=== PATIENT | male | born 1965 | race Caucasian/White ===

== ENCOUNTER 2022-01-28 01:37 | Outpatient (CLI) | payer BC, SELFPAY ==
[2022-01-28 12:17] LABS: Abs Immature Grans 0.05 10^3/uL (0.0-0.06); Absolute Basophil Count 0.06 10^3/uL (0.0-0.2); Absolute Eosinophil Count 0.09 10^3/uL (0.0-0.7); Absolute Lymphocyte Count 2.61 10^3/uL (1.2-3.4); Absolute Monocyte Count 0.96 10^3/uL (0.1-0.8); Absolute Neutrophil Count 6.14 10^3/uL (1.2-6.7); Basophils % 0.6; Eosinophils % 0.9; HCT 44.3 % (40.0-50.0); HGB 14.9 g/dL (13.5-17.5); Immature Grans % 0.5; Lymphocytes % 26.3; MCH 27.9 pg (27.0-33.0); MCHC 33.6 % (32.0-36.0); MCV 83 fL (80-95); MPV 10.7 fL (8.0-11.0); Monocytes % 9.7; Platelet Count 233 10^3/uL (130-400); RBC 5.34 10^6/uL (4.36-5.78); RDW 12.2 % (11.8-14.1); RDW-SD 36.9 fL; WBC 9.91 10^3/uL (4.4-10.8)
[2022-01-28 12:44] LABS: Hemoglobin A1C 12.4 % (<5.7)
[2022-01-28 13:00] LABS: ALT 32 U/L (16-63); AST 10 U/L (15-37); Albumin 3.6 g/dL (3.4-5.0); Alkaline Phosphatase 94 U/L (46-116); Anion Gap 6.9 mmol/L (3-11); BUN 20 mg/dL (7-18); Bilirubin, Total 0.4 mg/dL (0.2-1.0); CO2 30.1 mmol/L (21.0-32.0); CREATININE 1.1 mg/dL (0.70-1.30); Calcium 8.7 mg/dL (8.5-10.1); Calculated LDL 91 mg/dL (<100); Chloride 100 mmol/L (98-107); Cholesterol 169 mg/dL (<200); Estimated GFR 77.81 (mL/min/1.73m2); Glucose 319 mg/dL (74-106); HDL Cholesterol 40 mg/dL (40-60); Potassium 4.1 mmol/L (3.5-5.1); Sodium 137 mmol/L (136-145); TSH (W/Ref FT4) 1.74 uIU/mL (0.36-3.74); Total Protein 7.3 g/dL (6.4-8.2); Triglyceride 194 mg/dL (<150); Vitamin B12 307 pg/mL (193-986)
[2022-01-28 20:42] LABS: PSA, Screening 0.4 ng/mL (<=3.5)
== END 2022-01-28 01:38 | disposition home or self-care (01) ==
LOC: LOS 01:37
PROVIDERS: PCP Nurse Practitioner Family; Visit Provider Nurse Practitioner Family
DX: Z00.00 Encounter for general adult medical examination without abnormal findings (principal); R35.1 Nocturia; Z12.5 Encounter for screening for malignant neoplasm of prostate
CPT/HCPCS: 36415; 80053; 80061; 84153; 82607; 83036; 84443; 85025

== ENCOUNTER 2022-06-21 03:27 | Outpatient (CLI) | payer BC, SELFPAY ==
[2022-06-21 12:38] LABS: Hemoglobin A1C 7.2 % (<5.7)
[2022-06-21 12:44] LABS: Anion Gap 9.3 mmol/L (3-11); BUN 18 mg/dL (7-18); CO2 29.7 mmol/L (21.0-32.0); Calculated LDL 44 mg/dL (<100); Chloride 102 mmol/L (98-107); Cholesterol 103 mg/dL (<200); Glucose 128 mg/dL (74-106); HDL Cholesterol 43 mg/dL (40-60); Potassium 4.2 mmol/L (3.5-5.1); Sodium 141 mmol/L (136-145); Triglyceride 82 mg/dL (<150)
== END 2022-06-21 03:28 | disposition home or self-care (01) ==
LOC: LOS 03:27
PROVIDERS: PCP Nurse Practitioner Family; Visit Provider Nurse Practitioner Family
DX: E11.40 Type 2 diabetes mellitus with diabetic neuropathy, unspecified (principal); Z79.4 Long term (current) use of insulin
CPT/HCPCS: 36415; 80048; 80061; 83036

== ENCOUNTER 2024-03-08 10:38 | Outpatient (CLI) | payer BC, SELFPAY ==
[2024-03-08 12:32] LABS: Abs Immature Grans 0.06 10^3/uL (0.0-0.06); Absolute Eosinophil Count 0.05 10^3/uL (0.0-0.7); Absolute Lymphocyte Count 2.07 10^3/uL (1.2-3.4); Absolute Monocyte Count 1.18 10^3/uL (0.1-0.8); Basophils % 0.3 %; Eosinophils % 0.4 %; HCT 45.7 % (40.0-50.0); HGB 14.8 g/dL (13.5-17.5); Immature Grans % 0.5 %; Lymphocytes % 17.8 %; MCH 27.5 pg (27.0-33.0); MCHC 32.4 % (32.0-36.0); MCV 85 fL (80-95); MPV 10.8 fL (8.0-11.0); Monocytes % 10.1 %; Neutrophils % 70.9 %; Platelet Count 217 10^3/uL (130-400); RBC 5.39 10^6/uL (4.36-5.78); RDW 12.4 % (11.8-14.1); WBC 11.64 10^3/uL (4.4-10.8)
[2024-03-08 12:33] LABS: Absolute Basophil Count 0.03 10^3/uL (0.0-0.2); Absolute Neutrophil Count 8.25 10^3/uL (1.2-6.7); Anion Gap 9.1 mmol/L (3-11); BUN 15 mg/dL (7-18); CO2 28.9 mmol/L (21.0-32.0); CREATININE 1.2 mg/dL (0.70-1.30); Chloride 101 mmol/L (98-107); Estimated GFR 69.23 (mL/min/1.73m2); Glucose 244 mg/dL (74-106); Potassium 4.2 mmol/L (3.5-5.1); Sodium 139 mmol/L (136-145); Uric Acid 3.4 mg/dL (3.5-7.2)
== END 2024-03-08 10:39 | disposition home or self-care (01) ==
LOC: LOS 10:39
PROVIDERS: PCP Nurse Practitioner Family; Referring Provider Nurse Practitioner Family; Visit Provider Nurse Practitioner Family
DX: M79.671 Pain in right foot (principal); S99.921A Unspecified injury of right foot, initial encounter; M25.571 Pain in right ankle and joints of right foot; T14.8XXA Other injury of unspecified body region, initial encounter; L08.9 Local infection of the skin and subcutaneous tissue, unspecified; L03.115 Cellulitis of right lower limb; S93.401A Sprain of unspecified ligament of right ankle, initial encounter
CPT/HCPCS: 36415; 80048; 84550; 85025

== ENCOUNTER 2024-03-08 13:06 | Outpatient (CLI) | payer BC, SELFPAY ==
--- NOTE | 2024-03-08 11:00 | DI.RAD_ITS ---
Exam(s) XR FOOT RT COMPLETE EXAM: XR FOOT RT COMPLETE CLINICAL HISTORY: Rt foot pain, M79.671. TECHNIQUE: 2D digital imaging was performed. COMPARISON: No exams were available for comparison FINDINGS: 3 views No evidence of acute fracture or diastasis of the Lisfranc joint. There are some degenerative change s in the great toe metatarsal joint on its lateral aspect. Other MTP joints appear unremarkable. No osseous lesions nor erosions. There is a small osteophytic density off the lateral aspect of the in terphalangeal joint of the great toe which measures 4 x 3 mm. This is corticated and does not have t he appearance of an acute fracture fragment. No osseous lesions nor erosions. Os trigonum noted. Small inferior calcaneal spur noted. IMPRESSION: As above. No fractures evident. DATA REPOSITORY: RADIATION DOSE DELIVERED:
--- NOTE | 2024-03-08 11:00 | DI.RAD_ITS ---
Exam(s) XR ANKLE RT COMPLETE EXAM: XR ANKLE RT COMPLETE CLINICAL HISTORY: Acute rt ankle pain, M25.571. TECHNIQUE: 2D digital imaging was performed. COMPARISON: No exams were available for comparison FINDINGS: There is soft tissue swelling laterally. No evidence acute fracture nor widening the ankle mortise. Small osteophytic density subjacent to the medial malleolus is probably an accessory ossicle/ununite d apophysis. There is no soft tissue swelling over this region. The talar dome appears unremarkable . Os trigonum is noted. Tiny inferior calcaneal spur noted. There is also a small enthesophyte on the posterior calcaneus Achilles insertion site. No evidence of osseous tarsal coalition. IMPRESSION: Lateral soft tissue swelling. No fractures evident. DATA REPOSITORY: RADIATION DOSE DELIVERED:
== END 2024-03-08 13:26 ==
LOC: DI 13:06
PROVIDERS: PCP Nurse Practitioner Family; Visit Provider Nurse Practitioner Family
DX: M25.571 Pain in right ankle and joints of right foot
CPT/HCPCS: 73610; 73630

== ENCOUNTER 2024-03-08 16:14 | Outpatient (REF) | payer BC, SELFPAY | END 2024-03-08 16:15 | disposition home or self-care (01) | LOC: LBN 16:14 | PROVIDERS: PCP Nurse Practitioner Family; Visit Provider Nurse Practitioner Family | DX: S90.931A Unspecified superficial injury of right great toe, initial encounter (principal) | CPT/HCPCS: 87077; 87070; 87186; 87205 ==

== ENCOUNTER 2024-03-27 08:51 | Outpatient (CLI) | payer BC, SELFPAY ==
[2024-03-27 12:31] LABS: Abs Immature Grans 0.02 10^3/uL (0.0-0.06); Absolute Basophil Count 0.04 10^3/uL (0.0-0.2); Absolute Eosinophil Count 0.06 10^3/uL (0.0-0.7); Absolute Lymphocyte Count 1.73 10^3/uL (1.2-3.4); Absolute Monocyte Count 0.69 10^3/uL (0.1-0.8); Absolute Neutrophil Count 4.44 10^3/uL (1.2-6.7); Basophils % 0.6 %; Eosinophils % 0.9 %; HCT 44.5 % (40.0-50.0); HGB 14.7 g/dL (13.5-17.5); Immature Grans % 0.3 %; Lymphocytes % 24.8 %; MCH 27.6 pg (27.0-33.0); MCV 84 fL (80-95); MPV 11.2 fL (8.0-11.0); Monocytes % 9.9 %; Neutrophils % 63.5 %; Platelet Count 234 10^3/uL (130-400); RBC 5.33 10^6/uL (4.36-5.78); RDW 12.5 % (11.8-14.1); RDW-SD 37.8 fL; WBC 6.98 10^3/uL (4.4-10.8)
[2024-03-27 12:34] LABS: ESR 11 mm/hr (0-20)
[2024-03-27 12:40] LABS: Calculated LDL 44 mg/dL (<100); Cholesterol 110 mg/dL (<200); HDL Cholesterol 45 mg/dL (40-60); Triglyceride 109 mg/dL (<150)
[2024-03-27 12:48] LABS: C-Reactive Protein < 0.50 mg/dL (<or=0.5)
[2024-03-27 13:10] LABS: COMMENT (LAB VIEW ONLY) 224.76 mg/dL; Microalb ug/mg Crea 32.7 ug/mg Cr
== END 2024-03-27 08:52 | disposition home or self-care (01) ==
LOC: LOS 08:51
PROVIDERS: PCP Nurse Practitioner Family; Visit Provider Family Medicine
DX: E11.9 Type 2 diabetes mellitus without complications (principal); E11.40 Type 2 diabetes mellitus with diabetic neuropathy, unspecified; Z79.4 Long term (current) use of insulin; L03.90 Cellulitis, unspecified; R73.01 Impaired fasting glucose; Z13.6 Encounter for screening for cardiovascular disorders
CPT/HCPCS: 36415; 80061; 85652; 82043; 82570; 83036; 85025; 86140

== ENCOUNTER 2024-04-15 15:14 | Outpatient (CLI) | payer BC, SELFPAY ==
--- NOTE | 2024-04-15 14:38 | DI.RAD_ITS ---
Exam(s) XR FOOT RT COMPLETE EXAM: XR FOOT RT COMPLETE CLINICAL HISTORY: ongoing cellulitis, ? osteo, type 2 DM with long-term use of insulin. TECHNIQUE: 2D digital imaging was performed. Three views. COMPARISON: No exams were available for comparison FINDINGS: BONES: No acute fracture is present. No bony destructive lesion is seen. Small calcaneal enthesophyt es. JOINTS: No dislocation present. Mild degenerative changes 1st MTP joint SOFT TISSUE: Mild vascular calcifications. IMPRESSION: Mild degenerative changes. No plain film evidence of osteomyelitis. DATA REPOSITORY: RADIATION DOSE DELIVERED:
== END 2024-04-15 15:34 ==
LOC: DI 15:14
PROVIDERS: PCP Nurse Practitioner Family; Visit Provider Family Medicine
DX: E11.40 Type 2 diabetes mellitus with diabetic neuropathy, unspecified (principal); Z79.4 Long term (current) use of insulin
CPT/HCPCS: 73630